=== PATIENT | female | born 1990 | race Hispanic/Latino ===

== ENCOUNTER 2020-06-03 10:41 | Inpatient (IN) | payer OTHER ==
[2020-06-03 10:55] VITALS: BMI 35.2
[2020-06-03] MEDS ORDERED: hydrALAZINE 20 MG/ML VIAL SLOW IVP PRN ×2 (11:00→18:31)
[2020-06-03] MEDS ORDERED: Promethazine HCl 25 MG/ML VIAL IM PRN ×2 (11:00→16:40)
[2020-06-03] MEDS ORDERED: Ondansetron PF 4 MG/2 ML Vial IVP PRN ×3 (11:00→18:31)
[2020-06-03] MEDS ORDERED: Butorphanol Tartrate 1 MG/ML VIAL SLOW IVP PRN (11:00)
[2020-06-03] MEDS ORDERED: CEFAZOLIN 2 GM in Premix Bag 1 BAG IVPB SCH (11:15)
[2020-06-03] MEDS ORDERED: Bicitra 30 ML UDCUP PO SCH (11:15)
[2020-06-03] MEDS ORDERED: Acetaminophen 500 MG TAB PO PRN (11:26)
[2020-06-03 11:37] LABS: Hemoglobin 11.8 g/dL (12.0-16.0); Mean Corpuscular HGB CONC 35.5 g/dL (32.0-36.0); Mean Corpuscular Hemoglobin 32.1 pg (27.0-31.0); Mean Corpuscular Volume 90.3 fL (78.0-98.0); Mean Platelet Volume 6.5 fL (7.4-10.4); Platelet Count 260 thou/uL (130-400); RBC Distribution Width 13.3 % (11.5-14.5); Red Blood Cell (RBC) Count 3.67 mill/uL (4.20-5.40); White Blood Cell (WBC) Count 7.1 thou/uL (4.8-10.8)
[2020-06-03 12:17] LABS: HBSAg Index 0.17 S/CO (0-0.99); Hep B Surf Ag Non-Reactive S/CO (NonReactive); Syphilis Antibody Nonreactive (Nonreactive); Syphilis Antibody Index 0.02 S/CO (<1.00 Non-Reactive)
[2020-06-03] MEDS: Lactated Ringer's 1,000 ML IV SCH ×3 (12:24→21:06)
[2020-06-03] MEDS ORDERED: Ketorolac Tromethamine 30 MG/ML VIAL ONE (16:06)
[2020-06-03] MEDS ORDERED: EPHEDRINE 25 MG/5 ML SYRINGE ONE (16:06)
[2020-06-03] MEDS ORDERED: MORPHINE 5 MG/10 ML PF VIAL ONE (16:06)
[2020-06-03] MEDS ORDERED: Ondansetron PF 4 MG/2 ML Vial ONE (16:06)
[2020-06-03] MEDS ORDERED: PHENYLEPHRINE-NS 100 MCG/ML 10 ML SYRINGE ONE (16:06)
[2020-06-03] MEDS ORDERED: Oxytocin 10 UNITS/ML VIAL ONE (16:06)
[2020-06-03] MEDS ORDERED: Azithromycin 500 MG VIAL ONE (16:09)
[2020-06-03] MEDS ORDERED: Ondansetron HCl/PF 4 MG/2 ML Vial IVP PRN (16:40)
[2020-06-03] MEDS ORDERED: diphenhydrAMINE 50 MG/ML VIAL IVP PRN (16:40)
[2020-06-03] MEDS ORDERED: Naloxone HCl 0.4 mg/ml Vial IV PRN (16:40)
[2020-06-03] MEDS ORDERED: Naloxone HCl 0.4 mg/ml Vial IVP PRN ×2 (16:40)
[2020-06-03] MEDS ORDERED: Promethazine HCl 25 MG SUPP PR PRN (16:40)
[2020-06-03] MEDS ORDERED: Communication Order-Pharmacy FS SCH (16:45)
[2020-06-03 17:07] LABS: SARS-CoV-2 MS2 Positive; SARS-CoV-2 N Gene Negative; SARS-CoV-2 S Gene Negative; SARS-CoV-2 by NAA Not Detected (NotDetected); SARS-CoV-2 orf1ab Negative
[2020-06-03] MEDS ORDERED: Methylergonovine 0.2 MG/ML VIAL ONE (17:10)
[2020-06-03] MEDS ORDERED: Dexamethasone 4 mg/ml Vial ONE (17:37)
[2020-06-03] MEDS ORDERED: Promethazine HCl 25 MG/ML VIAL ONE (17:37)
[2020-06-03] MEDS ORDERED: NS / Oxytocin 40 units/1000ml 1,000 ML ONE (18:23)
[2020-06-03] MEDS ORDERED: diphenhydrAMINE 25 MG CAP PO PRN (18:31)
[2020-06-03] MEDS ORDERED: Bisacodyl 10 MG SUPP PR PRN (18:31)
[2020-06-03] MEDS ORDERED: Zolpidem Tartrate 5 MG TAB PO PRN (18:31)
[2020-06-03] MEDS ORDERED: Simethicone Chewable 80 MG TAB PO PRN (18:31)
[2020-06-03] MEDS ORDERED: Misoprostol 200 MCG TAB PR PRN (18:31)
[2020-06-03] MEDS ORDERED: Lanolin Ointment 7 GM TUBE TOP PRN (18:31)
[2020-06-03] MEDS ORDERED: Meperidine HCl/PF 25 MG/ML VIAL IM PRN (18:31)
[2020-06-03] MEDS ORDERED: NS / Oxytocin 40 units/1000ml 1,000 ML IV SCH (18:45)
[2020-06-03] MEDS ORDERED: Fentanyl 100 MCG/2 ML VIAL ONE (19:57)
[2020-06-03] MEDS ORDERED: Fentanyl 100 MCG/2 ML VIAL SLOW IVP SCH (20:15)
[2020-06-03] MEDS: Acetaminophen 650 MG Suppository PR SCH (21:05)
[2020-06-03] MEDS: Docusate Calcium (SURFAK) 240 MG CAP PO SCH (23:01)
[2020-06-04] MEDS: Ketorolac Tromethamine 30 MG/ML VIAL IVP PRN ×3 (00:01→15:34)
[2020-06-04] MEDS: Lactated Ringer's 1,000 ML IV SCH ×2 (02:38→11:44)
[2020-06-04 05:51] LABS: Hemoglobin 10.2 g/dL (12.0-16.0); Mean Corpuscular HGB CONC 34.4 g/dL (32.0-36.0); Mean Corpuscular Hemoglobin 31.5 pg (27.0-31.0); Mean Corpuscular Volume 91.4 fL (78.0-98.0); Mean Platelet Volume 6.3 fL (7.4-10.4); Platelet Count 214 thou/uL (130-400); RBC Distribution Width 13.2 % (11.5-14.5); Red Blood Cell (RBC) Count 3.25 mill/uL (4.20-5.40); White Blood Cell (WBC) Count 9.6 thou/uL (4.8-10.8)
[2020-06-04] MEDS: Acetaminophen 650 MG Suppository PR SCH ×2 (05:53→05:54)
[2020-06-04] MEDS: Ferrous Sulfate 325 MG TAB PO SCH ×2 (07:12→11:44)
[2020-06-04] MEDS: Prenatal Vitamin 1 TAB PO SCH (08:25)
[2020-06-04] MEDS: Docusate Calcium (SURFAK) 240 MG CAP PO SCH ×2 (08:25→20:22)
[2020-06-04] MEDS ORDERED: Adacel (T-DAP) 0.5 ML SYRINGE IM ONE (09:00)
[2020-06-04] MEDS ORDERED: HYDROcodone/Acetaminophen 5/325 mg Tablet PO PRN (12:00)
[2020-06-04] MEDS ORDERED: Acetaminophen 325 MG TAB PO PRN (12:00)
[2020-06-04] MEDS: HYDROcodone/Acetaminophen 5/325 mg Tablet PO PRN ×2 (12:54→17:00)
[2020-06-04] MEDS ORDERED: Acetaminophen 500 MG TAB PO PRN (16:00)
[2020-06-04] MEDS: Ibuprofen 800 MG TAB PO SCH (21:20)
[2020-06-05] MEDS: Ibuprofen 800 MG TAB PO SCH (05:33)
[2020-06-05] MEDS: HYDROcodone/Acetaminophen 5/325 mg Tablet PO PRN ×2 (05:33→09:44)
[2020-06-05] MEDS: Lactated Ringer's 1,000 ML IV SCH ×2 (05:35→08:07)
[2020-06-05] MEDS: Prenatal Vitamin 1 TAB PO SCH (08:06)
[2020-06-05] MEDS: Docusate Calcium (SURFAK) 240 MG CAP PO SCH (08:06)
[2020-06-05] MEDS: Ferrous Sulfate 325 MG TAB PO SCH (08:07)
[2020-06-05 08:17] VITALS: BP 120/79; TEMP 97.9
--- NOTE | 2020-06-11 10:30 | OP ---
DATE OF PROCEDURE: 06/03/2020 ATTENDING STAFF PHYSICIAN: Moses Vaz MD RESIDENT SURGEON: Sharri Sidhu MD PREOPERATIVE DIAGNOSES: 1. Term intrauterine at 38 and 1/7th's weeks. 2. Spontaneous rupture of membranes (SROM). 3. Prior section x2. POSTOPERATIVE DIAGNOSES: 1. Term intrauterine at 38 and 1/7th's weeks. 2. Spontaneous rupture of membranes (SROM). 3. Prior section x2. PROCEDURE PERFORMED: Repeat low transverse section. ANESTHESIA: Spinal catheterization. FINDINGS: 1. SROM at 38 and 1/7th's weeks, pooling and Nitrazine positive. 2. Regular contractions. 3. Vigorous male , 6 pounds and 10 ounces, Apgars 7 and 9. 4. Normal uterus, tubes, and ovaries. 5. Minimal scarring and adhesions secondary to previous adhesion prevention measures. COMPLICATIONS: None. SPECIMENS REMOVED: Cord blood. BLOOD LOSS: Less than 500 mL. DESCRIPTION OF PROCEDURE: After thorough consent and counseling, Mrs. Alicea was taken to the operating room and an adequate level of anesthesia was obtained via spinal catheterization. The patient was prepped and draped in the usual sterile fashion for abdominal surgery. A Steve was placed in the bladder, which was noted to be draining clear urine. A team time-out was performed per protocol. Attention was then turned to performing the repeat low-transverse section. A Pfannenstiel incision was made, and the old scar was excised. The incision was carried sharply through the fascia, which was also sharply incised. The midline was identified, and the rectus muscles were retracted laterally. The abdominal peritoneal cavity was entered with usual safeguards carried out. A retractor was placed, and a bladder flap was created on the vesicouterine peritoneum. A bladder blade was then placed. A low-transverse incision was made on the well-developed lower uterine segment. Upon entering the amniotic sac, copious amount of clear amniotic fluid was visualized. The was noted to be vertex presentation in the occiput anterior position. Head was delivered in an atraumatic fashion. The baby was bulb suctioned on the abdomen. Shoulders and body were then delivered in an atraumatic fashion. The cord was doubly clamped and cut, and the was handed to the pediatric team in attendance for the delivery. was a viable male, weighing 6 pounds 10 ounces with Apgars of 7 and 9 obtained at 1 and 5 minutes respectively. Cord blood was obtained. The placenta was manually removed from the uterus. The uterus was exteriorized, and good tone was noted. The low-transverse incision was closed in a running locking ligature of #1 chromic. A second imbricating layer was placed to facilitate strength and hemostasis. The vesicouterine peritoneum was reapproximated to the lower segment with running ligature of 2-0 Monocryl suture. Good tone and hemostasis were noted. The posterior cul-de-sac and gutters were cleared of clot and fluid. The uterus, fallopian tubes, and ovaries were carefully inspected and noted to be normal. No pathology was identified. Seprafilm was then applied to the low-transverse incision and to the anterior aspect of the uterus for adhesion prevention. The uterus was returned to the abdomen, and good tone and hemostasis were once again noted. Lap, sponge, and needle counts were correct. The peritoneum was closed with a running ligature of 2-0 Vicryl suture. The rectus muscles were reapproximated in the midline with interrupted ligatures of 2-0 Vicryl and 0 chromic suture. The fascia was then closed with two ligatures of 0 Vicryl suture, which were tied in the midline. Good fascial integrity was appreciated. The incision was then irrigated with copious amount of warm normal saline. The subcutaneous tissue was closed with interrupted ligatures of 2-0 plain. The skin was closed with subcuticular stitch of 4-0 Monocryl, then dressed with Dermabond. Lap, sponge, and needle counts were correct x3. Estimated blood loss during the surgical procedure was less than 500 mL. Team debriefing was performed per protocol. The patient was taken to recovery room in good condition. Immediately following surgery, the patient and family were made aware of the surgical procedure and operative findings. Questions were answered to their satisfaction. The baby was returned to the mother in the recovery room shortly after surgery for [id number] contact. The patient and her were very appreciative of the care rendered here at [facility] this evening. Job ID: [id number]
== END 2020-06-05 11:20 | disposition home or self-care (01) | DRG 788 ==
LOC: L&D 10:41 → 3SE 20:57
PROVIDERS: ADMIT Obstetrics & Gynecology; ATTEND Obstetrics & Gynecology
PROC: 10D00Z1 Extraction of Products of Conception, Low, Open Approach (ICD-10-PCS; principal; 2020-06-03)
DX: O34.211 Maternal care for low transverse scar from previous cesarean delivery (principal); Z3A.38 38 weeks gestation of pregnancy; Z37.0 Single live birth; Z20.828 Contact with and (suspected) exposure to other viral communicable diseases
CPT/HCPCS: 36415; 51702; 85027; 86780; 86850; 86900; 86901; 87340; 87635; 99285; J0456; J0690; J1100; J1885; J2210; J2274; J2405; J2550; J2590; J3010; U0003

== ENCOUNTER 2022-10-25 08:14 | Outpatient (CLI) | payer BC | END 2022-10-25 08:15 | disposition home or self-care (01) | LOC: BICRAD 08:14 | PROVIDERS: ATTEND Specialist | DX: M25.551 Pain in right hip (principal) ==